=== PATIENT | female | born 1935 | race Caucasian/White ===

== ENCOUNTER 2018-10-06 07:12 | Day surgery (SDC) | payer OTHER, BC ==
[2018-10-05 08:15] VITALS: BMI 30.5
[2018-10-06] MEDS ORDERED: LIDOCAINE HCL 1%, 10 MG/ML (20ML VIAL) ONE (08:41)
[2018-10-06] MEDS ORDERED: MIDAZOLAM HCL 2 MG/2 ML SINGLE DOSE VIAL ONE (09:50)
[2018-10-06] MEDS ORDERED: PROPOFOL 20 ML ONE ×2 (09:50→09:51)
[2018-10-06] MEDS ORDERED: LIDOCAINE HCL/PF 2% SDV 5ML VIAL ONE (09:50)
[2018-10-06] MEDS ORDERED: BUPIVACAINE HCL/PF 0.5% (5MG/ML) 10 ML VIAL ONE (10:10)
[2018-10-06] MEDS ORDERED: LIDOCAINE HCL 1%, 10 MG/ML (20ML VIAL) INF ONE (10:40)
[2018-10-06 12:00] VITALS: BP 129/60; PULSE 60; TEMP 97.9
--- NOTE | 2018-10-06 12:34 | OP ---
DATE OF OPERATION: 10/06/2018 PREOPERATIVE DIAGNOSIS: Left breast mass. POSTOPERATIVE DIAGNOSIS: Left breast mass. PROCEDURE: Excision of left breast mass. SURGEON: Vera Coulter MD ANESTHESIA: Local IV sedation. ESTIMATED BLOOD LOSS: Minimal. COMPLICATIONS: None. This was a sterile procedure. INDICATIONS: Patient presented with a palpable mass in the upper inner left breast. Needle core biopsy showed fat necrosis; however, it continued to bother her, and I wondered about . My recommendation was excision of the mass. The procedure was discussed and all of the questions answered. PROCEDURE IN DETAIL: Patient was brought to [facility] in [place]. Taken into the operating room, after IV sedation, the left breast was prepped in the usual sterile fashion. The palpable mass was felt in the left breast 9:30-10:00 location 8 cm from the nipple just inferior and medial to the previous scar. The area was anesthetized with 1% lidocaine without epinephrine. An ellipse of skin was taken to include the skin overlying this mass as it seemed to be tethered to skin. This was excised en bloc and sent as an excision of left breast mass to Pathology for permanent section. Hemostasis assured with electrocautery. The parenchyma was approximated with interrupted 3-0 Vicryl, skin approximated with interrupted 3-0 Vicryl, running 4-0 Biosyn. A sterile dressing with Tegaderm, 4 x 4's applied. She tolerated the procedure well and was taken to recovery in good condition. VERA COULTER M.D. [id number]
--- NOTE | 2018-10-09 11:09 | PATH ---
Surgical Pathology Report Patient Name: AP LOPEZ [facility]. Rec. #: [id number] /Age/Gender: 1935 (Age: 83) / F Account: [id number] [facility] Taken: 10/06/2018 Received: 10/06/2018 Reported: 10/09/2018 Physicians: Vera Alvarez M.D. Specimen(s) Received LEFT BREAST LUMPECTOMY Clinical History Palpable mass Core biopsy-fat necrosis, history of lumpectomy Final Diagnosis LEFT BREAST MASS, WIDE EXCISION: BENIGN BREAST TISSUE WITH CIRCUMSCRIBED AREA OF FAT NECROSIS AND FIBROSIS, ALONG WITH FIBROCYSTIC CHANGES INCLUDING USUAL DUCTAL HYPERPLASIA (UDH), STROMAL FIBROSIS, AND DUCTAL DILATATION. Comment: See prior specimens [id number] and [id number]. Electronically Signed Adalberto Cruz M.D. Gross Description Received in formalin labeled "left breast mass," is a 4.0 x 4.0 x 2.0 cm irregular, unoriented portion of fibroadipose tissue which is surfaced by a 4.0 x 1.1 cm jacobsen, elliptical, unremarkable portion of skin. There is no needle localization wire present. There are no orienting sutures present. The specimen is inked green and serially sectioned. Sectioning reveals a 1.8 x 1.3 x 1.3 cm jacobsen, firm, well circumscribed mass focally abutting the radial margin. The remaining parenchyma is unremarkable. Value Analysis Coordinator sections are submitted in 5 cassettes as follows: [id number] and sequentially submitted mass; 5-skin. Total formalin fixation time: Approximately 6 hours 10/06/201810/06/2018
== END 2018-10-06 11:52 | disposition home or self-care (01) ==
LOC: JASU-SURG 07:12
PROVIDERS: ATTEND Surgery
PROC: 0HBU0ZX Excision of Left Breast, Open Approach, Diagnostic (ICD-10-PCS; principal; 2018-10-06 09:00)
DX: D24.2 Benign neoplasm of left breast (principal); N60.12 Diffuse cystic mastopathy of left breast
CPT/HCPCS: 88307-TC